=== PATIENT | male | born 1965 | race Caucasian/White ===

== ENCOUNTER 2019-08-24 23:25 | Emergency (ER) | payer SELFPAY ==
[~2019-08-24] VITALS: Ht 177.8 cm; Wt 68.6 kg
[2019-08-25 00:22] LABS: BASOPHILS % (AUTO) 0 % (0-1); EOSINOPHILS # (AUTO) 0.34 x10^3/uL (0-0.4); EOSINOPHILS % (AUTO) 4 % (1-7); LYMPHOCYTES # (AUTO) 1.52 x10^3/uL (1-3.4); LYMPHOCYTES % (AUTO) 20 % (22-44); MD NO; MEAN CORPUSCULAR HEMOGLOBIN 31.3 pg (27.5-34.5); MEAN CORPUSCULAR HGB CONC 33.3 g/dL (33.2-36.2); MEAN PLATELET VOLUME 6.4 fL (7.4-10.4); MONOCYTES # (AUTO) 0.68 x10^3/uL (0.2-0.8); MONOCYTES % (AUTO) 9 % (2-9); NEUTROPHILS # (AUTO) 5.12 x10^3/uL (1.8-6.8); NEUTROPHILS % (AUTO) 67 % (42-75); PLATELET COUNT 286 x10^3/uL (130-400); RED BLOOD COUNT 3.82 x10^6/uL (4.38-5.82); RED CELL DISTRIBUTION WIDTH 13.1 % (9.4-14.8)
[2019-08-25 00:40] LABS: ALBUMIN 3.6 g/dL (3.4-5.0); ANION GAP 8 mmol/L (5-15); CHLORIDE 102 mmol/L (98-107); CREATININE 0.77 mg/dL (0.7-1.3)
[2019-08-25 01:30] VITALS: BP 129/73
--- NOTE | 2019-08-25 01:45 | NUR ---
PT GIVEN DISCHARGE PAPERS. PT ANGRY THAT HE IS BEING DISCHARGED RIGHT NOW. RN EXPLAINED HIS DISCHARGE PAPERS. PT STARTED SWEARING AND SAYING THAT "I'M FUCKED" PT OFFERED A CAB VOUCHER AND HE SAID [place]. PT CONTINUED TO SWEAR AT THIS RN. RN LEFT PT AND HE WAS DIRECTED TO D'/C DESK
== END 2019-08-25 01:51 | disposition home or self-care (01) ==
LOC: ED 08-25 01:45
DX: S16.1XXA Strain of muscle, fascia and tendon at neck level, initial encounter (principal); F17.210 Nicotine dependence, cigarettes, uncomplicated; X58.XXXA Exposure to other specified factors, initial encounter; Y93.89 Activity, other specified; Y92.89 Other specified places as the place of occurrence of the external cause; Y99.8 Other external cause status
CPT/HCPCS: 36415; 70360; 80048; 82040; 85025; 99284